=== PATIENT | female | born 1980 | race Caucasian/White ===

== ENCOUNTER 2017-04-14 14:06 | Emergency (ER) | payer BC ==
[~2017-04-14] VITALS: Ht 170.2 cm; Wt 62.7 kg
[2017-04-14 14:10] VITALS: BP 139/81; PULSE 62; RESP 18; TEMP 98.7; O2SAT 100
[2017-04-14] MEDS ORDERED: EMTR1TAB2 PO (14:17)
[2017-04-14] MEDS ORDERED: SODIUM CHLOR 0.9% 1000 ML INJ 1,000 ML IV SCH (15:32)
--- NOTE | 2017-04-14 15:38 | PD ---
HPI Chief Complaint: GI Complaint Time Seen by Provider: 15:33 Travel History International Travel<30 days: No Contact w/Intl Traveler<30days: No Traveled to known affect area: No History of Present Illness HPI 36-year-old female presents to the emergency department for evaluation of nausea , vomiting, diarrhea, abdominal pain that started last night at 7 PM. Patient denies any sick contacts. Patient is HIV positive. She is compliant with her antivirals. She states her CD4 count is 1600 and her viral load is 25. Patient denies any fevers or chills. No chest pain or shortness of breath. Patient states she's had multiple episodes of vomiting today. She states that nothing is coming up at this point and she is unable to eat. She states she is feeling dehydrated. She reports 4 episodes of nonbloody diarrhea. She denies any urinary symptoms. Patient denies any chance of reporting previous hysterectomy. PFSH Past Medical History ?: Not Past Surgical History Hysterectomy: Yes (2007) Social History Alcohol Use: No Tobacco Use: No Substance Use: No Allergies-Medications (Allergen,Severity, Reaction): Coded Allergies: No Known Allergies (Unverified , 04/14/17) Reported Meds & Prescriptions Reported Meds & Active Scripts Active Reported Odefsey (Kcntalhvnyysf-Aeebpmjuann-Nmtgwhqly Alafenam) 200-200-25 Mg Tab 1 Tab PO DAILY Review of Systems Except as stated in HPI: all other systems reviewed are Neg Physical Exam Narrative GENERAL: Well-nourished, well-developed female patient, ambulatory. Afebrile. SKIN: Focused skin assessment warm/dry. HEAD: Normocephalic. Atraumatic. EYES: No scleral icterus. No injection or drainage. NECK: Supple, trachea midline. No JVD or lymphadenopathy. CARDIOVASCULAR: Regular rate and rhythm without murmurs, gallops, or rubs. RESPIRATORY: Breath sounds equal bilaterally. No accessory muscle use. Lungs sounds are clear to auscultation. GASTROINTESTINAL: Abdomen soft and nondistended. Patient has epigastric tenderness to palpation. MUSCULOSKELETAL: No cyanosis, or edema. BACK: Nontender without obvious deformity. No CVA tenderness. Data Data Last Documented VS Vital Signs Date Time Temp Pulse Resp B/P Pulse Ox O2 Delivery O2 Flow Rate FiO2 04/14/17 14:10 98.7 62 18 139/81 100 Orders Complete Blood Count With Diff (04/14/17 15:32) Comprehensive Metabolic Panel (04/14/17 15:32) Lipase (04/14/17 15:32) Urinalysis - C+S If Indicated (04/14/17 15:32) Ct Abd/Pel W Iv Contrast(Rout) (04/14/17 15:32) Iv Access Insert/Monitor (04/14/17 15:32) Ecg Monitoring (04/14/17 15:32) Oximetry (04/14/17 15:32) Ondansetron Inj (Zofran Inj) (04/14/17 15:45) Sodium Chlor 0.9% 1000 Ml Inj (Ns 1000 M (04/14/17 15:32) Sodium Chloride 0.9% Flush (Ns Flush) (04/14/17 15:45) Electrocardiogram (04/14/17 15:32) Iohexol 350 Inj (Omnipaque 350 Inj) (04/14/17 16:37) Acetaminophen (Tylenol) (04/14/17 16:45) Us Abdomen Gallbladder (04/14/17 ) Prochlorperazine Inj (Compazine Inj) (04/14/17 17:15) Us Abdomen Gallbladder (04/14/17 ) Labs Laboratory Tests Test 04/14/17 04/14/17 16:00 17:20 White Blood Count 8.1 TH/MM3 Red Blood Count 4.13 MIL/MM3 Hemoglobin 13.5 GM/DL Hematocrit 39.3 % Mean Corpuscular Volume 95.3 FL Mean Corpuscular Hemoglobin 32.7 PG Mean Corpuscular Hemoglobin 34.3 % Concent Red Cell Distribution Width 13.8 % Platelet Count 189 TH/MM3 Mean Platelet Volume 8.3 FL Neutrophils (%) (Auto) 76.9 % Lymphocytes (%) (Auto) 17.8 % Monocytes (%) (Auto) 4.5 % Eosinophils (%) (Auto) 0.3 % Basophils (%) (Auto) 0.5 % Neutrophils # (Auto) 6.2 TH/MM3 Lymphocytes # (Auto) 1.4 TH/MM3 Monocytes # (Auto) 0.4 TH/MM3 Eosinophils # (Auto) 0.0 TH/MM3 Basophils # (Auto) 0.0 TH/MM3 CBC Comment DIFF FINAL Differential Comment Sodium Level 140 MEQ/L Potassium Level 3.5 MEQ/L Chloride Level 106 MEQ/L Carbon Dioxide Level 25.3 MEQ/L Anion Gap 9 MEQ/L Blood Urea Nitrogen 9 MG/DL Creatinine 0.76 MG/DL Estimat Glomerular Filtration 86 ML/MIN Rate Random Glucose 102 MG/DL Calcium Level 8.6 MG/DL Total Bilirubin 0.7 MG/DL Aspartate Amino Transf 15 U/L (AST/SGOT) Alanine Aminotransferase 21 U/L (ALT/SGPT) Alkaline Phosphatase 51 U/L Total Protein 6.8 GM/DL Albumin 3.5 GM/DL Lipase 130 U/L Urine Color YELLOW Urine Turbidity CLEAR Urine pH 8.5 Urine Specific [place] 1.048 Urine Protein 30 mg/dL Urine Glucose (UA) NEG mg/dL Urine Ketones 10 mg/dL Urine Occult Blood NEG Urine Nitrite NEG Urine Bilirubin NEG Urine Urobilinogen LESS THAN 2.0 MG/DL Urine Leukocyte Esterase NEG Urine WBC 2 /hpf Urine Squamous Epithelial 4 /hpf Cells Urine Mucus FEW /lpf Microscopic Urinalysis Comment CULT NOT INDICATED MDM Medical Decision Making Medical Screen Exam Complete: Yes Emergency Medical Condition: Yes Medical Record Reviewed: Yes Interpretation(s) Last 24 hours Impressions Abdomen/Pelvis CT 04/14/17 1532 Signed Impressions: Service Date/Time: Friday, April 14, 2017 16:35 - CONCLUSION: 1. 2.5 x 3.1 cm low-attenuation lesion in the medial right lobe of the liver probably representing hemangioma. Followup CT or MRI with delayed imaging for confirmation would be of benefit. 2. The gallbladder wall appears mildly edematous. Ultrasound would be of benefit for further assessment. 3. No findings to indicate bowel obstruction are seen. No free air or free fluid is present. Blane Joseph MD Gall Bladder Ultrasound 04/14/17 0000 Signed Impressions: Service Date/Time: Friday, April 14, 2017 18:43 - CONCLUSION: 1. Cholelithiasis; large stones in the gallbladder but no evidence of cholecystitis or biliary obstruction. 2. The space-occupying mass medially in the posterior segment of the right hepatic lobe could be but does not have ultrasound features convincing for hemangioma. Its appearance on today's CT is also indeterminate. Attempted further characterization with abdomen MRI with and without contrast is recommended. Chidi Bay MD Differential Diagnosis Gastroenteritis versus pancreatitis versus UTI versus gastritis versus electrolyte abnormality vs. diverticulitis Narrative Course 36-year-old female presents to the emergency department for evaluation nausea, vomiting, diarrhea, abdominal pain that started last night. EKG, CBC, CMP, lipase, UA are ordered and pending. CT abdomen/pelvis with IV contrast is ordered and pending. EKG shows sinus bradycardia, HR 48, no acute ST changes. CBC shows no acute abnormality. CMP shows no acute abnormality. Lipase is 130. UA is negative for acute infection. CT abdomen/pelvis shows 1. 2.5 x 3.1 cm low-attenuation lesion in the medial right lobe of the liver probably representing hemangioma. Followup CT or MRI with delayed imaging for confirmation would be of benefit; 2. The gallbladder wall appears mildly edematous. Ultrasound would be of benefit for further assessment; 3. No findings to indicate bowel obstruction are seen. No free air or free fluid is present. US of the gallbladder shows 1. Cholelithiasis; large stones in the gallbladder but no evidence of cholecystitis or biliary obstruction. 2. The space-occupying mass medially in the posterior segment of the right hepatic lobe could be but does not have ultrasound features convincing for hemangioma. Its appearance on today's CT is also indeterminate. Attempted further characterization with abdomen MRI with and without contrast is recommended. Patient will be discharged with a prescription for Phenergan for nausea/ vomiting. She is instructed to follow-up with her primary care physician. She is given copies of her imaging results. Diagnosis Primary Impression: Cholelithiasis Qualified Code: K80.80 - Biliary calculus of other site without obstruction Additional Impression: Nausea & vomiting Qualified Code: R11.2 - Non-intractable vomiting with nausea, unspecified vomiting type Referrals: Primary Care Physician call for appointment Patient Instructions: Gallstones (ED), General Instructions Additional Instructions: Follow up with your primary care physician for follow up with CT or MRI for possible liver hemangioma. Phenergan as needed for nausea/vomiting Return to the emergency department for any acute, worsening of symptoms. Med/Other Pt SpecificInfo: Prescription(s) given Scripts Promethazine (Phenergan)25 Mg [id number] Mg PO Q6H PRN (NAUSEA OR VOMITING) #12 TAB Ref 0 Prov:Liya Guardado 04/14/17 Disposition: 01 DISCHARGE HOME Condition: Stable Liya Guardado Apr 14, 2017 15:38
[2017-04-14] MEDS ORDERED: SODIUM CHLORIDE 0.9% FLUSH 10 ML FLUSH IV FLUSH PRN (15:45)
[2017-04-14] MEDS ORDERED: ONDANSETRON HCL 4 MG/2 ML VIAL IVP ONE (15:45)
[2017-04-14 16:19] LABS: AUTOMATED NEUTROPHIL # 6.2 TH/MM3 (1.8-7.7); BASOPHIL % 0.5 % (0.0-2.0); EOSINOPHIL % 0.3 % (0.0-4.0); HEMATOCRIT 39.3 % (35.0-46.0); HEMO FLAGS DIFF FINAL; LYMPH % 17.8 % (9.0-44.0); LYMPHOCYTE # 1.4 TH/MM3 (1.0-4.8); MEAN CELL VOLUME 95.3 FL (80.0-100.0); MEAN CORPUSCULAR HEMOGLOBIN 32.7 PG (27.0-34.0); MEAN CORPUSCULAR HGB CONC 34.3 % (32.0-36.0); MONO % 4.5 % (0.0-8.0); NEUT % 76.9 % (16.0-70.0); PLATELET COUNT 189 TH/MM3 (150-450); RED BLOOD COUNT 4.13 MIL/MM3 (4.00-5.30); RED CELL DISTRIBUTION WIDTH 13.8 % (11.6-17.2); WHITE BLOOD COUNT 8.1 TH/MM3 (4.0-11.0)
[2017-04-14] MEDS ORDERED: IOHEXOL 350 MG/ML 10 ML VIAL (for RAD DIAG) IV ONE (16:37)
[2017-04-14 16:41] LABS: ANION GAP 9 MEQ/L (5-15); AST (GOT) 15 U/L (15-37); BICARBONATE 25.3 MEQ/L (21.0-32.0); BLOOD UREA NITROGEN 9 MG/DL (7-18); CHLORIDE 106 MEQ/L (98-107); GLOMERULAR FILTRATION RATE 86 ML/MIN (>89); POTASSIUM 3.5 MEQ/L (3.5-5.1); SODIUM (NA) 140 MEQ/L (136-145)
[2017-04-14 16:44] LABS: ALKALINE PHOSPHATASE 51 U/L (45-117); ALT (GPT) 21 U/L (10-53); TOTAL BILIRUBIN ADULT 0.7 MG/DL (0.2-1.0)
[2017-04-14] MEDS ORDERED: ACETAMINOPHEN 325 MG TAB PO ONE (16:45)
--- NOTE | 2017-04-14 16:51 | RADRPT ---
EXAM DATE/TIME: 04/14/2017 16:35 [facility] COMPARISON: No previous studies available for comparison. INDICATIONS : Vomiting, weakness, dehydration. Abdominal pain. IV CONTRAST: 67 cc Omnipaque 350 (iohexol) IV ORAL CONTRAST: No oral contrast ingested. RADIATION DOSE: 8.98 CTDIvol (mGy) MEDICAL HISTORY : HIV. SURGICAL HISTORY : Hysterectomy. ENCOUNTER: Initial ACUITY: 2 days PAIN SCALE: 6/10 LOCATION: Bilateral abdominal TECHNIQUE: Volumetric scanning of the abdomen and pelvis was performed. Using automated exposure control and ad justment of the mA and/or kV according to patient size, radiation dose was kept as low as reasonably achievable to obtain optimal diagnostic quality images. DICOM format image data is available electro nically for review and comparison. FINDINGS: The limited portion of the lung base visualized is clear. Examination of the liver demonstrates a 2.5 x 3.1 cm low-attenuation lesion in the posterior aspect o f the liver. In a patient of this age primary consideration would be hemangioma. Followup CT imaging with delayed evaluation would be of benefit for further assessment. The spleen, pancreas, adrenal glands and kidneys are normal in appearance. The examination demonstrates mild thickening of the gallbladder wall. There is some questionable lalit cholecystic fluid. Ultrasound would be of benefit for further assessment. The abdominal aorta is normal in caliber. There is no retroperitoneal lymphadenopathy. The visualized loops of small and large bowel are unremarkable. There is no free fluid within the pel vis. No iliac or inguinal adenopathy is seen. The patient is post hysterectomy. The visualized bony structures are grossly intact. CONCLUSION: 1. 2.5 x 3.1 cm low-attenuation lesion in the medial right lobe of the liver probably representing he mangioma. Followup CT or MRI with delayed imaging for confirmation would be of benefit. 2. The gallbladder wall appears mildly edematous. Ultrasound would be of benefit for further assessme nt. 3. No findings to indicate bowel obstruction are seen. No free air or free fluid is present. Blane Joseph MD on April 14, 2017 at 16:46 Board Certified Radiologist. This report was verified electronically.
[2017-04-14] MEDS ORDERED: PROCHLORPERAZINE INJ 10 MG/2 ML VIAL IV PUSH ONE (17:15)
[2017-04-14 17:43] LABS: BLOOD, URINE NEG (NEG); COMMENT (UR) CULT NOT INDICATED; CULTURE IF INDICATED CULT NOT INDICATED; GLUCOSE,URINE NEG (NEG); KETONE, URINE 10 mg/dL (NEG); MUCUS URINE FEW /lpf (OCC); NITRITE,URINE NEG (NEG); PH, URINE 8.5 (5.0-8.5); SQUAMOUS EPITHELIAL CELL URINE 4 /hpf (0-5); URINE COLOR YELLOW (YELLW/STRAW)
--- NOTE | 2017-04-14 19:46 | RADRPT ---
EXAM DATE/TIME: 04/14/2017 18:43 [facility] COMPARISON: CT ABDOMEN & PELVIS W CONTRAST, April 14, 2017, 16:35. INDICATIONS : Nausea/vomiting. MEDICAL HISTORY : Substance use. Tobacco use. HIV positive. SURGICAL HISTORY : Tonsillectomy. Hysterectomy. ENCOUNTER: Initial ACUITY: 1 day PAIN SCORE: 0/10 LOCATION: Right upper quadrant MEASUREMENTS: LIVER: 18.1 cm length COMMON DUCT: 2 mm RIGHT KIDNEY: 12.3 x 6.1 x 4.1 cm FINDINGS: LIVER: There is a mass medially in the posterior segment of the right hepatic lobe measuring 3.7 x 3.2 x 2.8 cm, as seen on CT. By ultrasound, the mass is mainly of increased echogenicity but considerably hete rogeneous, not entirely typical of a benign hemangioma. It is not a cyst. The rest of the liver appea rs normal. No intrahepatic ovary distention. COMMON DUCT: No intraluminal mass or stone visualized. GALLBLADDER: There are large stones in the gallbladder measuring up to 3.4 cm in size. No gallbladder wall thicken ing or pericholecystic fluid. PANCREAS: The visualized portions are within normal limits. RIGHT KIDNEY: No evidence of hydronephrosis, stone, or mass. CONCLUSION: 1. Cholelithiasis; large stones in the gallbladder but no evidence of cholecystitis or biliary obstru ction. 2. The space-occupying mass medially in the posterior segment of the right hepatic lobe could be but does not have ultrasound features convincing for hemangioma. Its appearance on today's CT is also ind eterminate. Attempted further characterization with abdomen MRI with and without contrast is recommen ded. Chidi Bay MD on April 14, 2017 at 19:40 Board Certified Radiologist. This report was verified electronically.
[2017-04-14] MEDS ORDERED: PROM25TA10 PO (19:58)
--- NOTE | 2017-04-15 16:15 | EKG ---
Date Performed: 04/14/2017 Time Performed: 16:13:25 PTAGE: 36 years EKG: SINUS BRADYCARDIA WITHIN NORMAL LIMITS BORDERLINE ECG NO PREVIOUS TRACING DOCTOR: Gio Burch Interpretating Date/Time 04/15/2017 16:13:42
== END 2017-04-14 20:32 | disposition home or self-care (01) ==
LOC: NEPD 14:06
DX: K80.80 Other cholelithiasis without obstruction (principal); B20 Human immunodeficiency virus [HIV] disease; R00.1 Bradycardia, unspecified
CPT/HCPCS: 74177; 76705; 80053; 81001; 83690; 85025; 93005; 96361; 96374; 96375; 99285; J0780; J2405; J7030; Q9967